=== PATIENT | female | born 1985 | race Caucasian/White ===

== ENCOUNTER 2016-09-11 14:45 | Emergency (ER) | payer SELFPAY ==
--- NOTE | 2016-09-11 15:56 | DIAGNOSTIC IMAGING REPORT ---
PROCEDURE: XR CHEST 2 VIEW INDICATION: WEAK TECHNIQUE: PA and lateral views. COMPARISON: None. FINDINGS: Lungs are clear. Heart and mediastinum are normal. Thorax is normal. IMPRESSION: 1. Negative chest.
--- NOTE | 2016-09-11 17:38 | ED NURSING NOTES ---
Clinical Report - Nurses [facility] [address] [place] [address] 09/11/2016 14:46 Patient: SOCRATES CRISOSTOMO TRIAGE Triage time 14:57. Acuity: LEVEL 4. Chief Complaint: WEIGHT LOSS, FATIGUE, POOR APPETITE and DIZZINESS. Alert. --15:00 Christina Azar R.N. 14:57 09/11/16. BP: 119/60. HR: 90. RR: 16. O2 saturation: 99%. Temp: 98.3 F. Pain level now 0/10. --15:00 Christina Azar R.N. Weight: 52.6 kg stated. Height/Length: 61 inches Per Patient. BMI: 21.9. --14:59 Christina Azar R.N. Medications None. --17:37 Cristhian Washburn R.N. Allergies None. --17:37 Cristhian Washburn R.N. History Arrived by private vehicle. Historian: patient. Primary physician (none). Onset. (about 1 months). SOCIAL HX: Heavy tobacco smoker (cigarette)- 1 pack per day. History of weekly drug use. No marijuana. --15:00 Christina Azar R.N. PAST MEDICAL HX: Last normal menstrual period- about 2 days ago. --15:02 Christina Azar R.N. PROBLEMS: Hemorrhoids. Syncope. Dehydration. Vomiting. Dental Pain. Dental Abscess. Dental Caries. --17:37 rCisthian Washburn R.N. ADDITIONAL SURGERIES: . Tubal Ligation. --17:37 Cristhian Washburn R.N. PHYSICAL ASSESSMENT Ambulatory to room. Patient gowned. GENERAL / NEURO / PSYCH: Alert. Oriented X 4. Appears in distress. RESPIRATORY: Respirations not labored. --15:01 Christina Azar R.N. NURSING PROGRESS NOTES Patient gowned. Patient identifiers checked. Call light placed in reach. Bed placed in lowest position. Brakes of chair on. Patient ready for evaluation- chart flagged and ED physician notified. --15:01 Christina Azar R.N. Checked patient name and birthdate: patient confirmed. Blood samples drawn from the right antecubital space with syringe and 23g butterfly by tech per protocol ; labeled in presence of the patient and sent to lab: rainbow set: cardiac enzymes (1st set). --15:56 Noav Nikita Checked patient name and birthdate: patient confirmed. Instructions provided to collect clean catch urine and patient verbalized understanding urine collected with return of brandyn-colored cloudy urine; sample sent to lab for urinalysis and culture. Specimen labeled in the presence of the patient. --15:56 Nikita Bhatt 16:46 09/11/16. ( Patient resting easily aroused). --16:46 Che Camacho R.N. 16:43 09/11/16. BP: 110/72 (regular adult cuff) taken on the right arm, while lying. HR: 80 (regular). RR: 16 (regular). O2 saturation: 100% on room air. Temp: 98.2 F (oral). Pain level now: 0/10. --16:46 Che Camacho R.N. DISPOSITION / DISCHARGE 18:01 09/11/16. Condition at departure: unchanged. No learning barriers present. Discharge instructions provided and reviewed with the patient. Reviewed medication(s) side effects and precautions information. Prescription(s) given to the patient. Patient verbalized understanding. Written instructions provided in Egyptian. The patient was discharged by the physician. She was discharged home. She left the Emergency Department ambulatory and via private vehicle. Cath Lab Nurse driving. --18:02 Che Camacho R.N. 17:57 09/11/16. BP: 119/65 (regular adult cuff) taken on the left arm, while lying. HR: 80. RR: 16. O2 saturation: 99% on room air. Temp: 98.7 F (oral). Pain level now: 0/10. --18:02 Che Camacho R.N. Departure time: 18:06 Sep 11 2016. --18:06 Che Camacho R.N. Locked/Released at 09/11/2016 19:02 by Che Camacho R.N.
--- NOTE | 2016-09-11 17:38 | ED ORDER SUMMARY ---
..... Patient: SOCRATES CRISOSTOMO OrderSheet [facility] VisitID: [id number] [address] [place] [address] 31y, F Registration Date/Time: 09/11/2016 ORDER SHEET Weight: 52.6 kg (stated) Allergies: None GENERAL ORDERS: Chest 2V Urgent (15:09/11/2016 Chris SWEENEY) (Ack 15:43 Araceli) (15:50 EZIOayne R.N.) UA-Culture if indicated Urgent (15:09/11/2016 Chris SWEENEY) (Ack 15:43 Araceli) (16:59 JSimbeck R.N.) Cardiac Panel Stat (15:09/11/2016 Chris SWEENEY) (Ack 15:43 Araceli) (16:59 JSimbeck R.N.) Lipase Urgent (15:09/11/2016 Chris SWEENEY) (Ack 15:43 Araceli) (16:59 JSimbeck R.N.) Amylase Urgent (15:09/11/2016 Chris SWEENEY) (Ack 15:43 Araceli) (16:59 JSimbeck R.N.) Urine Urgent (15:09/11/2016 Chris SWEENEY) (Ack 15:43 Araceli) (16:59 JSimbeck R.N.) Urine Drug Screen Urgent (15:09/11/2016 Chris SWEENEY) (Ack 15:43 Araceli) (16:59 JSimbeck R.N.) TSH Urgent (15:09/11/2016 Chris SWEENEY) (Ack 15:43 Araceli) (16:59 JSimbeck R.N.) MEDICATION ORDERS: IV FLUIDS: ORDER SHEET NOTES: [Electronically signed by Che Camacho R.N. (19:09/11/2016)] [Electronically signed by Derik Valladares MD (20:23 09/11/2016)] [Electronically locked/signed by Che Camacho R.N. (19:09/11/2016)]
--- NOTE | 2016-09-11 17:38 | ED CLINICAL REPORT ---
Clinical Report - Physicians/Mid Levels [facility] [address] [place] [address] 09/11/2016 14:46 [facility]: [id number] Time Seen: 15:27 Sep 11 2016. Arrived- By private vehicle. Historian- patient. CPT: ER phys charges level 4 (#[id number]). HISTORY OF PRESENT ILLNESS Chief Complaint: WEIGHT LOSS, WEAKNESS and DIZZINESS poor appetite. ( Mouth hurts a lot when eating due to severe dental decay.). At its maximum, severity described as moderate. When seen in the E.D., severity described as moderate. Modifying factors. Not worsened by anything. Not relieved by anything. 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 The patient has had loss of appetite, fatigue and weakness. She has had weight loss (20 lbs in 1 month). Similar symptoms previously: None. Recent medical care: Not recently seen/assessed. REVIEW OF SYSTEMS No fever, sore throat, sinus drainage, nasal congestion or difficulty breathing. No chest pain, abdominal pain, nausea, vomiting or diarrhea. No black stools, bloody stools, chills, difficulty with urination or skin rash. No back pain, calf pain, headache, blackouts or double vision. 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 No difficulty with ambulation. All systems otherwise negative, except as recorded above. PAST HISTORY Clean from meth for 2 years. No history of heart disease, lung disease, neurological disease, GI disease or hypertension. No history of diabetes mellitus. SOCIAL HISTORY Heavy tobacco smoker (cigarette)- less than 1 pack per day. History of drug use: marijuana. ADDITIONAL NOTES The nursing notes have been reviewed. PHYSICAL EXAM Vital Signs: 09/11/2016 14:57 BP: 119/60. HR: 90. RR: 16. O2 saturation: 99%. Temp: 98.3 F. Appearance: Alert. Patient in mild distress. Eyes: Eyes normal inspection. ENT: Pharynx normal. Neck: Normal inspection. CVS: Normal heart rate and rhythm. Heart sounds normal. Pulses normal. No cardiac murmur. Respiratory: No respiratory distress. Breath sounds normal. Chest nontender. Abdomen: Soft and nontender. Bowel sounds normal. No mass. Back: Normal inspection. Skin: Skin warm. Normal skin color. No rash. Extremities: Extremities exhibit normal ROM. No lower extremity edema. Neuro: Oriented X 3. No motor deficit. No sensory deficit. Reflexes normal. LABS, X-RAYS, AND EKG Chest X-ray: Normal Chest X-Ray. Laboratory Tests: UA-Culture if indicated: (SHARRI: 09/11/2016 15:41) ( MsgRcvd 09/11/2016 16:14) Final results Test Result Flag Units (Reference) URINE COLOR YELLOW URINE APPEARANCE SL CLOUDY URINE GLUCOSE NEGATIVE (NEGATIVE) URINE BILIRUBIN NEGATIVE (NEGATIVE) URINE KETONE NEGATIVE (NEGATIVE) URINE SPECIFIC GRAVITY 1.020 (1.010-1.030) URINE PH 7.0 (5.0-8.0) URINE PROTEIN NEGATIVE (NEGATIVE) URINE UROBILINOGEN 2.0 EU/dL (0.2-1.0) The urobilinogen reagent area may react with interferingsubstances known to react with Ambrosio's reagent such asp-aminosalicylic acid and sulfonamides. Atypical colorreactions may be obtained in the presence of highconcentrations of p-aminobenzoic acid. The absence ofurobilinogen cannot be determined with this test. URINE NITRITE NEGATIVE (NEGATIVE) URINE BLOOD 1+ (NEGATIVE) URINE LEUK ESTERASE TRACE (NEGATIVE) URINE RBC 3-5 rbc/hpf (0-1) URINE WBC 3-5 wbc/hpf (0-1) URINE EPITHELIAL CELLS 3-5 EPI/hpf (0-5) URINE BACTERIA FEW (1+) (NONE SEEN) URINE COMMENT CULTURE INDICATED 2+ AMORPHOUSURINE CULTURES ARE SET-UP BASED ON THE FOLLOWING CRITERIA:POSITIVE NITRITEPOSITIVE LEUKOCYTE ESTERASEGREATER THAN 10 WHITE BLOOD CELLSMODERATE (2+) OR GREATER BACTERIA Urine: (SHARRI: 09/11/2016 15:41) ( MsgRcvd 09/11/2016 15:59) Final results Test Result Flag Units (Reference) URINE NEGATIVE CBC w Diff: (SHARRI: 09/11/2016 15:41) ( Mscvd 09/11/2016 15:56) Final results Test Result Flag Units (Reference) WHITE BLOOD COUNT 7.8 K/uL (4.5-11.5) RED BLOOD COUNT 4.96 M/uL (4.00-5.20) HEMOGLOBIN 12.8 gm/dL (12.0-16.0) HEMATOCRIT 38.6 % (36.0-46.0) MEAN CELL VOLUME 78 L fL (80-100) MEAN CORPUSCULAR HGB 26 pg (26-34) MEAN CORPUSCULAR HGB CONC 33 g/dL (31-37) RED CELL DISTRIBUTION WIDTH 14.6 % (11.6-14.8) PLATELET COUNT 233 K/uL (150-400) NEUTROPHIL % 58.6 % (50-75) LYMPH % 30.1 % (25-40) MONO % 9.5 % (3-14) EOSINOPHIL % 1.4 % (0-4) BASOPHIL % 0.4 % (0-2) Urine Drug Screen: (SHARRI: 09/11/2016 15:41) ( MsgRcvd 09/11/2016 16:17) Final results Test Result Flag Units (Reference) AMPHETAMINE/METHAMPHETAMINE POSITIVE H (NEGATIVE) BARBITURATE NEGATIVE (NEGATIVE) BENZODIAZEPINE NEGATIVE (NEGATIVE) CANNABINOID POSITIVE H (NEGATIVE) COCAINE NEGATIVE (NEGATIVE) ECSTASY NEGATIVE (NEGATIVE) METHADONE NEGATIVE (NEGATIVE) OPIATE NEGATIVE (NEGATIVE) The urine drug screen is a qualitative screening test fordrug overdose and abuse. All screen results should beconsidered as presumptive.Drugs screened for are as follows:BenzodiazepinesCocaineAmphetamines/MetamphetaminesTHC (Tetrahydrocannabinol)OpiatesBarbituratesEcstasyMethadonePositive results are unconfirmed. For confirmation, notifythe lab for the specimen to be sent to the reference lab.All confirmations must be performed by a differentmethodology.The ingestion of natural herbal and plant productscontaining Ephedra/Ephedra metabolites can produce in urineone or more substances capable of cross reacting withamphetamine/methamphetamine immunoassays. These testsprovide a preliminary result only. A more specificalternative chemical method must be used to obtain aconfirmed analytical result. Lipase: (SHARRI: 09/11/2016 15:41) ( MsgRcvd 09/11/2016 16:33) Final results Test Result Flag Units (Reference) LIPASE 252 U/L (73-393) AMYLASE 45 U/L (25-115) THYROID STIMULATING HORMONE 0.328 L uIU/mL (0.34-3.74) CHEM 13 PANEL: (SHARRI: 09/11/2016 15:41) ( MsgRcvd 09/11/2016 16:25) Final results Test Result Flag Units (Reference) GLUCOSE 91 mg/dL (70-110) BUN 14 mg/dL (7-18) CREATININE 0.7 mg/dL (0.6-1.3) Estimated GFR >60 mL/min Estimated GFR- >60 mL/min Note: Persistent reduction over 3 months in eGFR<60 mL/min/1.73 m2 defines CKD. Patients with eGFR values>=60 mL/min/1.73 m2 may also have CKD if evidence ofpersistent proteinuria. Additional information may be foundat www.kidney.org. SODIUM 142 mmol/L (136-145) POTASSIUM 3.6 mmol/L (3.5-5.1) CHLORIDE 105 mmol/L (98-107) CARBON DIOXIDE 30 mmol/L (21-32) CALCIUM 8.7 mg/dL (8.5-10.1) TOTAL PROTEIN 7.0 g/dL (6.4-8.2) ALBUMIN 3.3 g/dL (3.3-5.0) BILIRUBIN, TOTAL 0.2 mg/dL (0.0-1.0) ALKALINE PHOSPHATASE 60 U/L (46-116) AST (SGOT) 13 L U/L (15-37) ALT (SGPT) 22 U/L (12-78) CPK 104 U/L (24-260) MAGNESIUM 2.1 mg/dL (1.8-2.4) TROPONIN I <0.05 L ng/mL (0.00-1.5) TROPONIN REFERENCE RANGE:<0.1 NEGATIVE0.1-1.5 INDETERMINANT>1.5 POSITIVE . PROGRESS AND PROCEDURES Course of Care: Discussed need to stop drugs, get teeth fixed and add ensure to diet. Patient/family counseled. Disposition: Discharged. Condition: stable. CLINICAL IMPRESSION Substance abuse problems: abuse of methamphetamine. Substance dependence problems: dependence on methamphetamine. Weakness and weight loss due to poor intake. Poor intake due to chronic dental pain. Dental pain due to severe , extensive decay. INSTRUCTIONS (Get to drug support group. Get ensure protein shakes to keep your nutrition up and help the weakness.). Warnings: Further evaluation is necessary. Prescription Medications: Penicillin V 500mg: take 1 tab orally every 6 hours for 10 days. Dispense forty (40). No refill OTC Medications: Acetaminophen (available over the counter): take according to label instructions. Follow-up: Follow up with your doctor in one week. Call for an appointment. Understanding of the discharge instructions verbalized by patient. Follow-up with: [facility], , , [address], [facility] [address] Follow up in one week. Call for the next available appointment. Reason for referral: For dental pain. (Electronically signed by Derik Valladares MD 09/11/2016 20:23)
--- NOTE | 2016-09-11 17:38 | ED NURSING NOTES ---
Clinical Report - Nurses [facility] [place] [address] [place] [address] 09/11/2016 14:46 Patient: SOCRATES CRISOSTOMO TRIAGE Triage time 14:57. Acuity: LEVEL 4. Chief Complaint: WEIGHT LOSS, FATIGUE, POOR APPETITE and DIZZINESS. Alert. --15:00 Christina Azar R.N. 14:57 09/11/16. BP: 119/60. HR: 90. RR: 16. O2 saturation: 99%. Temp: 98.3 F. Pain level now 0/10. --15:00 Christina Azar R.N. Weight: 52.6 kg stated. Height/Length: 61 inches Per Patient. BMI: 21.9. --14:59 Christina Azar R.N. Medications None. --17:37 Cristhian Washburn R.N. Allergies None. --17:37 Cristhian Washburn R.N. History Arrived by private vehicle. Historian: patient. Primary physician (none). Onset. (about 1 months). SOCIAL HX: Heavy tobacco smoker (cigarette)- 1 pack per day. History of weekly drug use. No marijuana. --15:00 Christina Azar R.N. PAST MEDICAL HX: Last normal menstrual period- about 2 days ago. --15:02 Christina Azar R.N. PROBLEMS: Hemorrhoids. Syncope. Dehydration. Vomiting. Dental Pain. Dental Abscess. Dental Caries. --17:37 Cristhian Washburn R.N. ADDITIONAL SURGERIES: . Tubal Ligation. --17:37 Cristhian Washburn R.N. PHYSICAL ASSESSMENT Ambulatory to room. Patient gowned. GENERAL / NEURO / PSYCH: Alert. Oriented X 4. Appears in distress. RESPIRATORY: Respirations not labored. --15:01 Christina Azar R.N. NURSING PROGRESS NOTES Patient gowned. Patient identifiers checked. Call light placed in reach. Bed placed in lowest position. Brakes of chair on. Patient ready for evaluation- chart flagged and ED physician notified. --15:01 Christina Azra R.N. Checked patient name and birthdate: patient confirmed. Blood samples drawn from the right antecubital space with syringe and 23g butterfly by tech per protocol ; labeled in presence of the patient and sent to lab: rainbow set: cardiac enzymes (1st set). --15:56 Nova Nikita Checked patient name and birthdate: patient confirmed. Instructions provided to collect clean catch urine and patient verbalized understanding urine collected with return of brandyn-colored cloudy urine; sample sent to lab for urinalysis and culture. Specimen labeled in the presence of the patient. --15:56 Nikita Bhatt 16:46 09/11/16. ( Patient resting easily aroused). --16:46 Che Camacho R.N. 16:43 09/11/16. BP: 110/72 (regular adult cuff) taken on the right arm, while lying. HR: 80 (regular). RR: 16 (regular). O2 saturation: 100% on room air. Temp: 98.2 F (oral). Pain level now: 0/10. --16:46 Che Camacho R.N. DISPOSITION / DISCHARGE 18:01 09/11/16. Condition at departure: unchanged. No learning barriers present. Discharge instructions provided and reviewed with the patient. Reviewed medication(s) side effects and precautions information. Prescription(s) given to the patient. Patient verbalized understanding. Written instructions provided in Kosovan. The patient was discharged by the physician. She was discharged home. She left the Emergency Department ambulatory and via private vehicle. [employer] Detective driving. --18:02 Che Camacho R.N. 17:57 09/11/16. BP: 119/65 (regular adult cuff) taken on the left arm, while lying. HR: 80. RR: 16. O2 saturation: 99% on room air. Temp: 98.7 F (oral). Pain level now: 0/10. --18:02 Che Camacho R.N. Departure time: 18:06 Sep 11 2016. --18:06 Che Camacho R.N. Locked/Released at 09/11/2016 19:02 by Che Camacho R.N.
--- NOTE | 2016-09-11 17:38 | ED ORDER SUMMARY ---
..... Patient: SOCRATES CRISOSTOMO OrderSheet [facility] VisitID: [id number] [address] [place] [address] 31y, F Registration Date/Time: 09/11/2016 ORDER SHEET Weight: 52.6 kg (stated) Allergies: None GENERAL ORDERS: Chest 2V Urgent (15:09/11/2016 Chris SWEENEY) (Ack 15:43 Araceli) (15:50 EZIOayne R.N.) UA-Culture if indicated Urgent (15:09/11/2016 Chris SWEENEY) (Ack 15:43 Araceli) (16:59 JSimbeck R.N.) Cardiac Panel Stat (15:09/11/2016 Chris SWEENEY) (Ack 15:43 Araceli) (16:59 JSimbeck R.N.) Lipase Urgent (15:09/11/2016 Chris SWEENEY) (Ack 15:43 Araceli) (16:59 JSimbeck R.N.) Amylase Urgent (15:09/11/2016 Chris SWEENEY) (Ack 15:43 Araceli) (16:59 JSimbeck R.N.) Urine Urgent (15:09/11/2016 Chris SWEENEY) (Ack 15:43 Araceli) (16:59 JSimbeck R.N.) Urine Drug Screen Urgent (15:09/11/2016 Chris SWEENEY) (Ack 15:43 Araceli) (16:59 JSimbeck R.N.) TSH Urgent (15:09/11/2016 Chris SWEENEY) (Ack 15:43 Araceli) (16:59 JSimbeck R.N.) MEDICATION ORDERS: IV FLUIDS: ORDER SHEET NOTES: [Electronically signed by Che Camacho R.N. (19:09/11/2016)] [Electronically signed by Derik Valladares MD (20:23 09/11/2016)] [Electronically locked/signed by Che Camacho R.N. (19:09/11/2016)]
--- NOTE | 2016-09-11 17:38 | ED CLINICAL REPORT ---
Clinical Report - Physicians/Mid Levels [facility] [address] [place] [address] 09/11/2016 14:46 [id number] Time Seen: 15:27 Sep 11 2016. Arrived- By private vehicle. Historian- patient. CPT: ER phys charges level 4 (#[id number]). HISTORY OF PRESENT ILLNESS Chief Complaint: WEIGHT LOSS, WEAKNESS and DIZZINESS poor appetite. ( Mouth hurts a lot when eating due to severe dental decay.). At its maximum, severity described as moderate. When seen in the E.D., severity described as moderate. Modifying factors. Not worsened by anything. Not relieved by anything. This started about 1 months [employer] and is still present. The patient has had loss of appetite, fatigue and weakness. She has had weight loss (20 lbs in 1 month). Similar symptoms previously: None. Recent medical care: Not recently seen/assessed. REVIEW OF SYSTEMS No fever, sore throat, sinus drainage, nasal congestion or difficulty breathing. No chest pain, abdominal pain, nausea, vomiting or diarrhea. No black stools, bloody stools, chills, difficulty with urination or skin rash. No back pain, calf pain, headache, blackouts or double vision. The patient has had a moderate cough productive of green sputum (for 1 months [employer]). No difficulty with ambulation. All systems otherwise negative, except as recorded above. PAST HISTORY Clean from meth for 2 years. No history of heart disease, lung disease, neurological disease, GI disease or hypertension. No history of diabetes mellitus. SOCIAL HISTORY Heavy tobacco smoker (cigarette)- less than 1 pack per day. History of drug use: marijuana. ADDITIONAL NOTES The nursing notes have been reviewed. PHYSICAL EXAM Vital Signs: 09/11/2016 14:57 BP: 119/60. HR: 90. RR: 16. O2 saturation: 99%. Temp: 98.3 F. Appearance: Alert. Patient in mild distress. Eyes: Eyes normal inspection. ENT: Pharynx normal. Neck: Normal inspection. CVS: Normal heart rate and rhythm. Heart sounds normal. Pulses normal. No cardiac murmur. Respiratory: No respiratory distress. Breath sounds normal. Chest nontender. Abdomen: Soft and nontender. Bowel sounds normal. No mass. Back: Normal inspection. Skin: Skin warm. Normal skin color. No rash. Extremities: Extremities exhibit normal ROM. No lower extremity edema. Neuro: Oriented X 3. No motor deficit. No sensory deficit. Reflexes normal. LABS, X-RAYS, AND EKG Chest X-ray: Normal Chest X-Ray. Laboratory Tests: UA-Culture if indicated: (SHARRI: 09/11/2016 15:41) ( MsgRcvd 09/11/2016 16:14) Final results Test Result Flag Units (Reference) URINE COLOR YELLOW URINE APPEARANCE SL CLOUDY URINE GLUCOSE NEGATIVE (NEGATIVE) URINE BILIRUBIN NEGATIVE (NEGATIVE) URINE KETONE NEGATIVE (NEGATIVE) URINE SPECIFIC GRAVITY 1.020 (1.010-1.030) URINE PH 7.0 (5.0-8.0) URINE PROTEIN NEGATIVE (NEGATIVE) URINE UROBILINOGEN 2.0 EU/dL (0.2-1.0) The urobilinogen reagent area may react with interferingsubstances known to react with Ambrosio's reagent such asp-aminosalicylic acid and sulfonamides. Atypical colorreactions may be obtained in the presence of highconcentrations of p-aminobenzoic acid. The absence ofurobilinogen cannot be determined with this test. URINE NITRITE NEGATIVE (NEGATIVE) URINE BLOOD 1+ (NEGATIVE) URINE LEUK ESTERASE TRACE (NEGATIVE) URINE RBC 3-5 rbc/hpf (0-1) URINE WBC 3-5 wbc/hpf (0-1) URINE EPITHELIAL CELLS 3-5 EPI/hpf (0-5) URINE BACTERIA FEW (1+) (NONE SEEN) URINE COMMENT CULTURE INDICATED 2+ AMORPHOUSURINE CULTURES ARE SET-UP BASED ON THE FOLLOWING CRITERIA:POSITIVE NITRITEPOSITIVE LEUKOCYTE ESTERASEGREATER THAN 10 WHITE BLOOD CELLSMODERATE (2+) OR GREATER BACTERIA Urine: (SHARRI: 09/11/2016 15:41) ( MsgRcvd 09/11/2016 15:59) Final results Test Result Flag Units (Reference) URINE NEGATIVE CBC w Diff: (SHARRI: 09/11/2016 15:41) ( Mscvd 09/11/2016 15:56) Final results Test Result Flag Units (Reference) WHITE BLOOD COUNT 7.8 K/uL (4.5-11.5) RED BLOOD COUNT 4.96 M/uL (4.00-5.20) HEMOGLOBIN 12.8 gm/dL (12.0-16.0) HEMATOCRIT 38.6 % (36.0-46.0) MEAN CELL VOLUME 78 L fL (80-100) MEAN CORPUSCULAR HGB 26 pg (26-34) MEAN CORPUSCULAR HGB CONC 33 g/dL (31-37) RED CELL DISTRIBUTION WIDTH 14.6 % (11.6-14.8) PLATELET COUNT 233 K/uL (150-400) NEUTROPHIL % 58.6 % (50-75) LYMPH % 30.1 % (25-40) MONO % 9.5 % (3-14) EOSINOPHIL % 1.4 % (0-4) BASOPHIL % 0.4 % (0-2) Urine Drug Screen: (SHARRI: 09/11/2016 15:41) ( MsgRcvd 09/11/2016 16:17) Final results Test Result Flag Units (Reference) AMPHETAMINE/METHAMPHETAMINE POSITIVE H (NEGATIVE) BARBITURATE NEGATIVE (NEGATIVE) BENZODIAZEPINE NEGATIVE (NEGATIVE) CANNABINOID POSITIVE H (NEGATIVE) COCAINE NEGATIVE (NEGATIVE) ECSTASY NEGATIVE (NEGATIVE) METHADONE NEGATIVE (NEGATIVE) OPIATE NEGATIVE (NEGATIVE) The urine drug screen is a qualitative screening test fordrug overdose and abuse. All screen results should beconsidered as presumptive.Drugs screened for are as follows:BenzodiazepinesCocaineAmphetamines/MetamphetaminesTHC (Tetrahydrocannabinol)OpiatesBarbituratesEcstasyMethadonePositive results are unconfirmed. For confirmation, notifythe lab for the specimen to be sent to the reference lab.All confirmations must be performed by a differentmethodology.The ingestion of natural herbal and plant productscontaining Ephedra/Ephedra metabolites can produce in urineone or more substances capable of cross reacting withamphetamine/methamphetamine immunoassays. These testsprovide a preliminary result only. A more specificalternative chemical method must be used to obtain aconfirmed analytical result. Lipase: (SHARRI: 09/11/2016 15:41) ( MsgRcvd 09/11/2016 16:33) Final results Test Result Flag Units (Reference) LIPASE 252 U/L (73-393) AMYLASE 45 U/L (25-115) THYROID STIMULATING HORMONE 0.328 L uIU/mL (0.34-3.74) CHEM 13 PANEL: (SHARRI: 09/11/2016 15:41) ( MsgRcvd 09/11/2016 16:25) Final results Test Result Flag Units (Reference) GLUCOSE 91 mg/dL (70-110) BUN 14 mg/dL (7-18) CREATININE 0.7 mg/dL (0.6-1.3) Estimated GFR >60 mL/min Estimated GFR- >60 mL/min Note: Persistent reduction over 3 months in eGFR<60 mL/min/1.73 m2 defines CKD. Patients with eGFR values>=60 mL/min/1.73 m2 may also have CKD if evidence ofpersistent proteinuria. Additional information may be foundat www.kidney.org. SODIUM 142 mmol/L (136-145) POTASSIUM 3.6 mmol/L (3.5-5.1) CHLORIDE 105 mmol/L (98-107) CARBON DIOXIDE 30 mmol/L (21-32) CALCIUM 8.7 mg/dL (8.5-10.1) TOTAL PROTEIN 7.0 g/dL (6.4-8.2) ALBUMIN 3.3 g/dL (3.3-5.0) BILIRUBIN, TOTAL 0.2 mg/dL (0.0-1.0) ALKALINE PHOSPHATASE 60 U/L (46-116) AST (SGOT) 13 L U/L (15-37) ALT (SGPT) 22 U/L (12-78) CPK 104 U/L (24-260) MAGNESIUM 2.1 mg/dL (1.8-2.4) TROPONIN I <0.05 L ng/mL (0.00-1.5) TROPONIN REFERENCE RANGE:<0.1 NEGATIVE0.1-1.5 INDETERMINANT>1.5 POSITIVE . PROGRESS AND PROCEDURES Course of Care: Discussed need to stop drugs, get teeth fixed and add ensure to diet. Patient/family counseled. Disposition: Discharged. Condition: stable. CLINICAL IMPRESSION Substance abuse problems: abuse of methamphetamine. Substance dependence problems: dependence on methamphetamine. Weakness and weight loss due to poor intake. Poor intake due to chronic dental pain. Dental pain due to severe , extensive decay. INSTRUCTIONS (Get to drug support group. Get ensure protein shakes to keep your nutrition up and help the weakness.). Warnings: Further evaluation is necessary. Prescription Medications: Penicillin V 500mg: take 1 tab orally every 6 hours for 10 days. Dispense forty (40). No refill OTC Medications: Acetaminophen (available over the counter): take according to label instructions. Follow-up: Follow up with your doctor in one week. Call for an appointment. Understanding of the discharge instructions verbalized by patient. Follow-up with: [facility], , , [address], [facility] [address] Follow up in one week. Call for the next available appointment. Reason for referral: For dental pain. (Electronically signed by Derik Valladares MD 09/11/2016 20:23)
--- NOTE | 2016-09-11 20:24 | ED MED RECONCILIATION SUMMARY ---
Patient: SOCRATES CRISOSTOMO Medication Reconciliation Report [facility] VisitID: [id number] [address] [place] [address] 31y, F Registration Date/Time: 09/11/2016 Weight: 52.6 kg Height/Length: 61 in. BMI: 21.9 ALLERGIES: None The patient's Home Medications are listed below: NONE. The source(s) of the original Home Medication information: Not obtained. The following Medications were given to the patient in the Emergency Department: None. The following Medications were prescribed to the patient: Acetaminophen (available over the counter): take according to label instructions. -- Derik Valladares MD Penicillin V 500mg: take 1 tab orally every 6 hours for 10 days. Dispense forty (40). No refill -- Derik Valladares MD
--- NOTE | 2016-09-11 20:24 | ED MAR SUMMARY ---
..... Medication Administration Record [facility] [address] [place], [place] [id number] Patient: ANDRESSA SOCRATES D Visit ID: [id number] 31y, F Weight: 52.6 kg Height/Length: 61 in BMI: 21.9 ALLERGIES: None
--- NOTE | 2016-09-11 20:24 | ED DISCHARGE INSTRUCTIONS ---
Patient: SOCRATES CRISOSTOMO General Instructions [facility] VisitID: [id number] [address] [place] [address] 31y, F Registration Date/Time: 09/11/2016 Substance abuse problems: abuse of methamphetamine. Substance dependence problems: dependence on methamphetamine. Weakness and weight loss due to poor intake. Poor intake due to chronic dental pain. Dental pain due to severe , extensive decay. INSTRUCTIONS (Get to drug support group. Get ensure protein shakes to keep your nutrition up and help the weakness.). Warnings: Further evaluation is necessary. Prescription Medications: Penicillin V 500mg: take 1 tab orally every 6 hours for 10 days. Dispense forty (40). No refill OTC Medications: Acetaminophen (available over the counter): take according to label instructions. Follow-up: Follow up with your doctor in one week. Call for an appointment. Understanding of the discharge instructions verbalized by patient. Follow-up with: [facility], , , [address], , [place], [address] Follow up in one week. Call for the next available appointment. Reason for referral: For dental pain. (Electronically signed by Derik Valladares MD 09/11/2016 20:23)
--- NOTE | 2016-09-11 20:24 | ED MED RECONCILIATION SUMMARY ---
Patient: SOCRATES CRISOSTOMO Medication Reconciliation Report [facility] VisitID: [id number] [address] [place] [address] 31y, F Registration Date/Time: 09/11/2016 Weight: 52.6 kg Height/Length: 61 in. BMI: 21.9 ALLERGIES: None The patient's Home Medications are listed below: NONE. The source(s) of the original Home Medication information: Not obtained. The following Medications were given to the patient in the Emergency Department: None. The following Medications were prescribed to the patient: Acetaminophen (available over the counter): take according to label instructions. -- Derik Valladares MD Penicillin V 500mg: take 1 tab orally every 6 hours for 10 days. Dispense forty (40). No refill -- Derik Valladares MD
--- NOTE | 2016-09-11 20:24 | ED MAR SUMMARY ---
..... Medication Administration Record [facility] [address] [place], [place] [id number] Patient: ANDRESSA SOCRATES D Visit ID: [id number] 31y, F Weight: 52.6 kg Height/Length: 61 in BMI: 21.9 ALLERGIES: None
--- NOTE | 2016-09-11 20:24 | ED DISCHARGE INSTRUCTIONS ---
Patient: SOCRATES CRISOSTOMO General Instructions [facility] VisitID: [id number] [address] [place] [address] 31y, F Registration Date/Time: 09/11/2016 Substance abuse problems: abuse of methamphetamine. Substance dependence problems: dependence on methamphetamine. Weakness and weight loss due to poor intake. Poor intake due to chronic dental pain. Dental pain due to severe , extensive decay. INSTRUCTIONS (Get to drug support group. Get ensure protein shakes to keep your nutrition up and help the weakness.). Warnings: Further evaluation is necessary. Prescription Medications: Penicillin V 500mg: take 1 tab orally every 6 hours for 10 days. Dispense forty (40). No refill OTC Medications: Acetaminophen (available over the counter): take according to label instructions. Follow-up: Follow up with your doctor in one week. Call for an appointment. Understanding of the discharge instructions verbalized by patient. Follow-up with: [facility], , , [address], , [place], [address] Follow up in one week. Call for the next available appointment. Reason for referral: For dental pain. (Electronically signed by Derik Valladares MD 09/11/2016 20:23)
== END 2016-09-11 18:00 | disposition home or self-care (01) ==
LOC: ED SRH 14:45
DX: R53.1 Weakness (principal); R63.4 Abnormal weight loss; F15.20 Other stimulant dependence, uncomplicated; K08.89 Other specified disorders of teeth and supporting structures; K02.9 Dental caries, unspecified; F17.210 Nicotine dependence, cigarettes, uncomplicated
CPT/HCPCS: 90004; 90070; 90100; 90148; 90469; 90616; 91672; 92235; 92530; 92610; 92720; 92760; 92761; 92762; 92763; 92764; 92765; 92766; 92767; 93070; 93140; 95059

== ENCOUNTER 2016-10-01 20:47 | Emergency (ER) | payer OTHER ==
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
--- NOTE | 2016-10-01 21:20 | ED ORDER SUMMARY ---
..... Patient: SOCRATES CRISOSTOMO OrderSheet [facility] VisitID: [id number] [address] [place] [address] 31y, F Registration Date/Time: 10/01/2016 ORDER SHEET Weight: 54.4 kg (stated) Allergies: None GENERAL ORDERS: MEDICATION ORDERS: Percocet PO 5/325 mg (HIGH ALERT MEDICATION, NOW) (21:18 10/01/2016 Clarence Roland.AQing-Eugenio) (21:26 Geeta Andrade) IV FLUIDS: ORDER SHEET NOTES: [Electronically signed by Justo Hernández R.N. (21:30 10/01/2016)] [Electronically signed by Zara Munroe P.A.-C (21:34 10/01/2016)] [Electronically locked/signed by Justo Hernández R.N. (21:30 10/01/2016)]
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
--- NOTE | 2016-10-01 21:20 | ED ORDER SUMMARY ---
..... Patient: SOCRATES CRISOSTOMO OrderSheet [facility] VisitID: [id number] [address] [place] [address] 31y, F Registration Date/Time: 10/01/2016 ORDER SHEET Weight: 54.4 kg (stated) Allergies: None GENERAL ORDERS: MEDICATION ORDERS: Percocet PO 5/325 mg (HIGH ALERT MEDICATION, NOW) (21:18 10/01/2016 Clarence Roland.AQing-Eugenio) (21:26 Geeta Andrade) IV FLUIDS: ORDER SHEET NOTES: [Electronically signed by Justo Hernández R.N. (21:30 10/01/2016)] [Electronically signed by Zara Munroe P.A.-C (21:34 10/01/2016)] [Electronically locked/signed by Justo Hernández R.N. (21:30 10/01/2016)]
--- NOTE | 2016-10-01 21:34 | ED MAR SUMMARY ---
..... Medication Administration Record [facility] [address] [place] [address] Patient: SOCRATES CRISOSTOMO Visit ID: [id number] 31y, F Weight: 54.4 kg Height/Length: 61 in BMI: 22.7 ALLERGIES: None Given 21:26 10/01/2016 Justo Hernández R.N. Medication Administered: PERCOCET [PO] (OXYCODONE-ACETAMINOPHEN), Dose: 1 tab 5/325 mg Tablets PO. Medication Ordered: Percocet PO 5/325 mg (HIGH ALERT MEDICATION, NOW).
--- NOTE | 2016-10-01 21:34 | ED DISCHARGE INSTRUCTIONS ---
Patient: SOCRATES CRISOSTOMO General Instructions [facility] VisitID: [id number] [place] [address] 31y, F Registration Date/Time: 10/01/2016 Multiple right rib fractures (Old, healing). Clavicle fracture (acromial (subacute/ healing)). INSTRUCTIONS Warnings: Further evaluation is necessary. SEDATIVE MEDICATION: You were given sedative medication during your visit. Do not drive or operate dangerous machinery. Prescription Medications: Percocet 5 mg/325 mg: take 1 tablet orally every 6 hours as needed for pain. Dispense twenty (20). No refill. Substitution is permissible. Follow-up: Follow up with your doctor . ADDITIONAL INFORMATION Fracture:Clavicle There is a break (fracture) in your collarbone. This will cause swelling, pain and bruising. The first 3-4 weeks will be the most painful because deep breathing, coughing or changing position from sitting to lying down, may cause the broken ends to move slightly. The fracture will heal in about 4-6 weeks. In children this injury will heal by reshaping the bone back to normal. In adults, a noticeable bump in the bone may remain. Treatment is with a sling or shoulder immobilizer (special type of arm sling). This supports your arm and reduces pain. Home Care 1) Apply an ice pack (ice cubes in a plastic bag, wrapped in a towel) over the injured area for 20 minutes every 1-2 hours the first day. Continue with ice packs 3-4 times a day for the next two days, then as needed for the relief of pain and swelling. 2) If a sling or shoulder immobilizer was provided, wear it for comfort. You may remove it for bathing and when you go to sleep. Take your arm out of the sling for a little while each day and move your shoulder to avoid stiffness. 3) No heavy lifting or raising the injured arm overhead until you are pain free. No sports or P.E. for at least four weeks or until cleared by your doctor to do so. 4) You may use acetaminophen (Tylenol) or ibuprofen (Motrin, Advil) to control pain, unless another pain medicine was prescribed. [ NOTE : If you have chronic liver or kidney disease or ever had a stomach ulcer or GI bleeding, talk with your doctor before using these medicines.] Follow Up with your doctor within one week to be sure the bone is healing properly, or as advised by our staff. [NOTE: A radiologist will review any X-rays that were taken. We will notify you of any new findings that may affect your care.] Get Prompt Medical Attention if any of the following occur: -- Increased swelling or large area of bruising over the collar bone -- Fingers become swollen, cold, blue, numb or tingly -- Shortness of breath, dizziness or weakness Rib Fracture You have a fracture (break) of one or more ribs. Rib fractures do not require a cast like other bones. They will heal by themselves in about 4-6 weeks. The first 3-4 weeks will be the most painful because deep breathing, coughing or changing position from sitting to lying down, may cause the broken ends to move slightly. Home Care: Rest. You should not be doing any heavy lifting or strenuous exertion until the pain goes away. Because it hurts to breathe when you have a broken rib, there is risk of getting pneumonia from poor airflow through your lungs. To prevent this: Take four very deep breaths at least four times a day (exhale through pursed lips as if you are blowing up a balloon). If an "incentive spirometer" (breathing exercise device) was given to you, use it at least four times a day, or as directed. Apply an ice pack (ice cubes in a plastic bag, wrapped in a towel) over the injured area for 20 minutes every 1-2 hours the first day. Continue with ice packs 3-4 times a day for the next two days, then as needed for the relief of pain and swelling. You may use acetaminophen (Tylenol) or ibuprofen (Motrin, Advil) to control pain, unless another pain medicine was prescribed. [NOTE: If you have chronic liver or kidney disease or ever had a stomach ulcer or GI bleeding, talk with your doctor before using these medicines.] If your pain is not controlled by the treatment given, contact your doctor. Sometimes a stronger pain medicine may be needed. A nerve block (numbing the nerve between the ribs) can be performed in case of severe pain. Follow Up with your doctor during the next week, or as advised. Rarely, a broken rib will cause complications within the first few days that may not be evident during your initial exam (such as, collapsed lung, bleeding around the lung or into the abdomen, or pneumonia). Therefore, watch for the signs below. [NOTE: If x-rays were taken, they will be reviewed by a radiologist. You will be notified of any new findings that may affect your care.] Get Prompt Medical Attention if any of the following occur: Shortness of breath Increasing chest pain with breathing Dizziness, weakness or fainting New or worsening abdominal pain Fever of 100.4F (38C) or higher, or as directed by your healthcare provider Congested cough Oxycodone Hydrochloride, Acetaminophen Oral tablet What is this medicine? ACETAMINOPHEN; OXYCODONE (a set a KAREN joaquin fen; ox i KOE done) is a pain reliever. It is used to treat mild to moderate pain. How should I use this medicine? Take this medicine by mouth with a full glass of water. Follow the directions on the prescription label. Take your medicine at regular intervals. Do not take your medicine more often than directed. Talk to your pencil sorter regarding the use of this medicine in children. Special care may be needed. Patients over 65 years old may have a stronger reaction and need a smaller dose. What side effects may I notice from receiving this medicine? Side effects that you should report to your doctor or health housekeeper child care as soon as possible: allergic reactions like skin rash, itching or hives, swelling of the face, lips, or tongue breathing difficulties, wheezing confusion light headedness or fainting spells severe stomach pain yellowing of the skin or the whites of the eyes Side effects that usually do not require medical attention (report to your doctor or health housekeeper child care if they continue or are bothersome): dizziness drowsiness nausea vomiting What may interact with this medicine? alcohol antihistamines barbiturates like amobarbital, butalbital, butabarbital, methohexital, pentobarbital, phenobarbital, thiopental, and secobarbital benztropine drugs for bladder problems like solifenacin, trospium, oxybutynin, tolterodine, hyoscyamine, and methscopolamine drugs for breathing problems like ipratropium and tiotropium drugs for certain stomach or intestine problems like propantheline, homatropine methylbromide, glycopyrrolate, atropine, belladonna, and dicyclomine general anesthetics like etomidate, ketamine, nitrous oxide, propofol, desflurane, enflurane, halothane, isoflurane, and sevoflurane medicines for depression, anxiety, or psychotic disturbances medicines for sleep muscle relaxants naltrexone narcotic medicines (opiates) for pain phenothiazines like perphenazine, thioridazine, chlorpromazine, mesoridazine, fluphenazine, prochlorperazine, promazine, and trifluoperazine scopolamine tramadol trihexyphenidyl What if I miss a dose? If you miss a dose, take it as soon as you can. If it is almost time for your next dose, take only that dose. Do not take double or extra doses. Where should I keep my medicine? Keep out of the reach of children. This medicine can be abused. Keep your medicine in a safe place to protect it from theft. Do not share this medicine with anyone. Selling or giving away this medicine is dangerous and against the law. Store at room temperature between 20 and 25 degrees C (68 and 77 degrees F). Keep container tightly closed. Protect from light. This medicine may cause accidental overdose and if it is taken by other adults, children, or pets. Flush any unused medicine down the toilet to reduce the chance of harm. Do not use the medicine after the expiration date. What should I tell my health care provider before I take this medicine? They need to know if you have any of these conditions: brain tumor Crohn's disease, inflammatory bowel disease, or ulcerative colitis drink more than 3 alcohol containing drinks per day drug abuse or addiction head injury heart or circulation problems kidney disease or problems going to the bathroom liver disease lung disease, asthma, or breathing problems an unusual or allergic reaction to acetaminophen, oxycodone, other opioid analgesics, other medicines, foods, dyes, or preservatives or trying to get breast-feeding What should I watch for while using this medicine? Tell your doctor or health housekeeper child care if your pain does not go away, if it gets worse, or if you have new or a different type of pain. You may develop tolerance to the medicine. Tolerance means that you will need a higher dose of the medication for pain relief. Tolerance is normal and is expected if you take this medicine for a long time. Do not suddenly stop taking your medicine because you may develop a severe reaction. Your body becomes used to the medicine. This does NOT mean you are addicted. Addiction is a behavior related to getting and using a drug for a non-medical reason. If you have pain, you have a medical reason to take pain medicine. Your doctor will tell you how much medicine to take. If your doctor wants you to stop the medicine, the dose will be slowly lowered over time to avoid any side effects. You may get drowsy or dizzy. Do not drive, use machinery, or do anything that needs mental alertness until you know how this medicine affects you. Do not stand or sit up quickly, especially if you are an older patient. This reduces the risk of dizzy or fainting spells. Alcohol may interfere with the effect of this medicine. Avoid alcoholic drinks. There are different types of narcotic medicines (opiates) for pain. If you take more than one type at the same time, you may have more side effects. Give your health care provider a list of all medicines you use. Your doctor will tell you how much medicine to take. Do not take more medicine than directed. Call emergency for help if you have problems breathing. The medicine will cause constipation. Try to have a bowel movement at least every 2 to 3 days. If you do not have a bowel movement for 3 days, call your doctor or health housekeeper child care. Do not take Tylenol (acetaminophen) or medicines that have acetaminophen with this medicine. Too much acetaminophen can be very dangerous. Many nonprescription medicines contain acetaminophen. Always read the labels carefully to avoid taking more acetaminophen. You have been given the following additional information: Fracture, Clavicle Fracture, Rib Oxycodone Hydrochloride, Acetaminophen Oral tablet (Electronically signed by Zara Munroe P.A.-C 10/01/2016 21:34)
--- NOTE | 2016-10-01 21:34 | ED MAR SUMMARY ---
..... Medication Administration Record [facility] [address] [place] [address] Patient: SOCRATES CRISOSTOMO Visit ID: [id number] 31y, F Weight: 54.4 kg Height/Length: 61 in BMI: 22.7 ALLERGIES: None Given 21:26 10/01/2016 Justo Hernández R.N. Medication Administered: PERCOCET [PO] (OXYCODONE-ACETAMINOPHEN), Dose: 1 tab 5/325 mg Tablets PO. Medication Ordered: Percocet PO 5/325 mg (HIGH ALERT MEDICATION, NOW).
--- NOTE | 2016-10-01 21:34 | ED MED RECONCILIATION SUMMARY ---
Patient: SOCRATES CRISOSTOMO Medication Reconciliation Report [facility] VisitID: [id number] [address] [place] [address] 31y, F Registration Date/Time: 10/01/2016 Weight: 54.4 kg Height/Length: 61 in. BMI: 22.7 ALLERGIES: None The patient's Home Medications are listed below: NONE. The source(s) of the original Home Medication information: patient The following Medications were given to the patient in the Emergency Department: Percocet [PO] PO 1 tab, administered: 10/01/2016 9:26:00 PM The following Medications were prescribed to the patient: Percocet 5 mg/325 mg: take 1 tablet orally every 6 hours as needed for pain. Dispense twenty (20). No refill. Substitution is permissible. -- Zara Munroe PQingAKevinC
--- NOTE | 2016-10-01 21:34 | ED MED RECONCILIATION SUMMARY ---
Patient: SOCRATES CRISOSTOMO Medication Reconciliation Report [facility] VisitID: [id number] [address] [place] [address] 31y, F Registration Date/Time: 10/01/2016 Weight: 54.4 kg Height/Length: 61 in. BMI: 22.7 ALLERGIES: None The patient's Home Medications are listed below: NONE. The source(s) of the original Home Medication information: patient The following Medications were given to the patient in the Emergency Department: Percocet [PO] PO 1 tab, administered: 10/01/2016 9:26:00 PM The following Medications were prescribed to the patient: Percocet 5 mg/325 mg: take 1 tablet orally every 6 hours as needed for pain. Dispense twenty (20). No refill. Substitution is permissible. -- Zara Munroe PQnigAKevinC
== END 2016-10-01 21:28 | disposition home or self-care (01) ==
LOC: ED SRH 20:47
DX: S22.41XD Multiple fractures of ribs, right side, subsequent encounter for fracture with routine healing (principal); S42.033D Displaced fracture of lateral end of unspecified clavicle, subsequent encounter for fracture with routine healing; V49.60XD Unspecified car occupant injured in collision with unspecified motor vehicles in traffic accident, subsequent encounter